=== PATIENT | female | born 1955 | race Caucasian/White ===

== ENCOUNTER 2020-02-10 10:01 | Outpatient (REF) | payer OTHER, SELFPAY | END 2020-02-10 10:02 | disposition home or self-care (01) | LOC: HO.LAB 10:01 | PROVIDERS: Visit Provider Internal Medicine | DX: Z20.828 Contact with and (suspected) exposure to other viral communicable diseases (principal) | CPT/HCPCS: 87635 ==

== ENCOUNTER 2020-06-26 07:35 | Outpatient (REF) | payer OTHER, SELFPAY | END 2020-06-26 07:36 | disposition home or self-care (01) | LOC: HO.LAB 07:35 | PROVIDERS: Visit Provider Internal Medicine | DX: Z20.822 Contact with and (suspected) exposure to COVID-19 (principal) | CPT/HCPCS: 36415; C9803; U0003; U0005 ==